=== PATIENT | female | born 2000 | race Caucasian/White ===

== ENCOUNTER 2024-11-28 18:10 | Emergency (ER) | payer OTHER, SELFPAY ==
--- NOTE | 2024-11-28 18:14 | ED_ITS ---
HPI - Wound/Laceration General Chief Complaint: Animal Bite Stated Complaint: Cat Bite Time Seen by Provider: 11/28/24 18:32 Source: patient and RN notes reviewed Mode of arrival: ambulatory Limitations: no limitations History of Present Illness HPI narrative: 24-year-old female presents to the [facility] after being bit by a cat at work. Works at an animal [employer]. Patient has multiple puncture wounds to the left wrist. Had cleaned with Hibiclens. Occurred approximately 11:00 a.m. this morning. Patient is in on vaccinated adults. States that she never received any vaccines for school. Is willing to update tetanus at this time. Does have full range of motion of the wrists, fingers. Capillary refill under 2 seconds. Related Data Home Medications ?Medication ?Instructions ?Recorded ?Confirmed ?Last Taken ?Type etonogestrel 0.12 mg-ethinyl vag ring vaginal 11/28/24 Unknown History estradiol 0.015 mg/24 hr vaginal ring (EnilloRing) iron polysacch cplx 150 mg cap PO 11/28/24 Unknown Hi story iron-vit B12 25 mcg-folic acid 1 mg capsule (Poly-Iron) sertraline 100 mg tablet mg 11/28/24 Unknown History ubrogepant 100 mg tablet (Ubrelvy) mg 11/28/24 Unknow n History valacyclovir 500 mg tablet mg 11/28/24 Unknown Histor y Allergies Allergy/AdvReac Type Severity Reaction Status Date / Time No Known Allergies Allergy Verified 11/28/24 18:50 Review of Systems Review of Systems: All systems reviewed & are unremarkable except as noted in HPI and below Constitutional: Constitutional: Reports no additional constitutional co mplaints ENT: Reports system reviewed and no additional complaints, except as documented Cardiovascular: Cardiovascular: Reports no additional cardiovascular complaints, Denies chest pain and Denies dyspnea Respiratory: Respiratory: Reports no additional respiratory complaints, Denies chest congestion, Denies cough and Denies dyspnea Musculoskeletal: Musculoskeletal: Reports no additional musculoskeletal complaints Integumentary/Breasts: Skin/Breast: Reports as per HPI PMFSH Comments At the time of my signature, I reviewed and agree with the nursing past medical, surgical, social, and family history. There is no relevant family history pertinent to the patient complaint. Exam Const: General: cooperative, healthy appearing, comfortable, no acute distress, well developed, alert and well nourished Nutritional Appearance: well nourished Orientation/consciousness: patient oriented x3 Limitations: no limitations HENMT: Head: normal to inspection Eyes: General: appearance normal, both eyes and all related structures Alignment and Position: alignment normal Neck: Neck: normal visual inspection, full ROM, no lymphadenopathy and no meningeal signs Chest: Chest palpation & inspection: normal inspection of the chest Resp: Effort & Inspection: normal respiratory effort and able to speak in complete sentences Cardio: Rate: regular rate Skin: General skin exam: normal color and no rashes or lesions noted Wounds: wounds noted Other: Multiple puncture wounds left wrist, left hand at the thumb. Full range of motion is noted. Capillary refill under 2 seconds. Neuro: General: patient oriented x3, gait normal, moves all extremities and no meningeal signs Cognition (Neuro): normal cognition Speech: normal speech Gait exam (Neuro): Normal gait present Extrem: General: normal to inspection, full ROM, capillary refill normal and normal gait Psych: Appearance: grossly normal and well kempt Mental Status: mental status grossly normal Speech and movement: Normal speech and movement present and Clear speech present Affect: normal affect Attitude: cooperative Course Course Level of Care: Express Care Visit Vital Signs Vital signs: Vital Signs Temperature 97.5 F L 11/28/24 18:35 Pulse Rate 83 11/28/24 18:35 Respiratory Rate 16 11/28/24 18:35 Blood Pressure 143/75 H 11/28/24 18:35 Pulse Oximetry 100 11/28/24 18:35 Temperature 97.5 F L 11/28/24 18:35 Pulse Rate 83 11/28/24 18:35 Respiratory Rate 16 11/28/24 18:35 Blood Pressure 143/75 H 11/28/24 18:35 Pulse Oximetry 100 11/28/24 18:35 Reviewed MDM - Wound/Laceration MDM Narrative Medical decision making narrative: Patient sitting exam room. Patient is nontoxic, vitals are stable. Patient presents with concerns for a cat bite that occurred 11:00 a.m.. They were updating cats vaccine status. Had cleaned with chlorhexidine Patient with full range of motion. Injury occurred approximately 11:00 a.m.. Patient updated on tetanus Will cover with antibiotics, discussed in detail signs and symptoms proceed to the emergency room which she verbalized understanding Discharge instructions reviewed with patient, as well as provided in writing per nursing staff. The instructions also include specific and strict return/GO TO THE ER as well as f/u information. All questions have been answered, and the patient deny any further questions with discharge and discharge plan. Some parts of this dictation were generated by voice recognition software and may contain typographical and/or grammatical inaccuracies. Differential Diagnosis Differential diagnosis: Likely laceration, abscess, abrasion and avulsion of skin Critical Care Time Critical Care Time Critical Care Time: No Discharge Plan Discharge Clinical Impression: Cat bite, Vaccine for [id number], combined Patient Disposition: Home Condition: Stable Instructions: Antibiotic Form, Animal Bite (ED) Additional Instructions: Soak twice a day in soapy water with Epson salt. Continue to wash with the chlorhexidine. Take antibiotic as prescribed Rest, ice and elevate every 2-3 hours for 15-20 minutes while awake Take Motrin alternating with Tylenol as needed for pain Follow-up with primary care provider as needed For new or worsening symptoms please go to the nearest emergency room Patient Language: Croatian Prescriptions: New amoxicillin-pot clavulanate 875-125 mg tablet 1 tablet PO Q12H Qty: 20 0RF No Action sertraline 100 mg tablet valacyclovir 500 mg tablet Poly-Iron 150 Forte 150-25-1 mg-mcg-mg capsule PO etonogestrel-ethinyl estradiol [EnilloRing] 0.12-0.015 mg/24 hr ring VAGINAL Ubrelvy 100 mg tablet Follow-up/Referrals: UNKNOWN,DOCTOR [Non-Staff] Time of Disposition: 18:51
[2024-11-28 18:35] VITALS: BP 143/75; PULSE 83; RESP 16; TEMP 36.4; O2SAT 100
[2024-11-28] MEDS: TETANUS,DIPHTHERIA,AC PERTUSSIS ADULT (0.5 ML) BOOSTRIX IM (18:58)
== END 2024-11-28 18:55 | disposition home or self-care (01) ==
PROVIDERS: Emergency Provider Nurse Practitioner
DX: S61.532A Puncture wound without foreign body of left wrist, initial encounter (principal); S61.032A Puncture wound without foreign body of left thumb without damage to nail, initial encounter; W55.01XA Bitten by cat, initial encounter; Z23 Encounter for immunization; F41.9 Anxiety disorder, unspecified
CPT/HCPCS: 90471; 90715; 99203; G0463